=== PATIENT | female | born 1990 | race American Indian/Alaskan Native ===

== ENCOUNTER 2019-01-26 13:13 | Outpatient (CLI) | payer MEDICAID ==
[2019-01-26] MEDS ORDERED: LACTATED RINGERS 500 ML IV ONE (13:35)
[2019-01-26 13:38] VITALS: BP 108/62
[2019-01-26 14:11] LABS: Bacteria,Urine 2+ /HPF (Negative); Bilirubin,Urine NEG (Negative); Blood,Urine NEG (Negative); Color,Urine Yellow (Yellow); Protein,Urine <15 mg/dL mg/dL (Negative); Urobilinogen,Urine < 2.0 mg/dL (<2.0)
[2019-01-26] MEDS ORDERED: ZOFRAN IV ONE ×2 (14:11→14:30)
[2019-01-26] MEDS ORDERED: NACL 0.9% IV STA (14:17)
[2019-01-26] MEDS ORDERED: ZOFRAN IV STA (14:17)
== END 2019-01-26 17:45 | disposition home or self-care (01) ==
LOC: TRG 13:13
PROVIDERS: ATTEND Obstetrics & Gynecology
DX: O47.02 False labor before 37 completed weeks of gestation, second trimester (principal); O26.892 Other specified pregnancy related conditions, second trimester; R25.2 Cramp and spasm; Z3A.27 27 weeks gestation of pregnancy
CPT/HCPCS: 59025; 81001; 96374; J2405; J7120; 96360; 96361; 96372